=== PATIENT | male | born 1970 | race Caucasian/White ===

== ENCOUNTER 2024-03-18 16:54 | Emergency (ER) | payer OTHER, SELFPAY ==
[2024-03-18 17:09] VITALS: BP 169/104
[2024-03-18 17:25] VITALS: BP 156/95
[2024-03-18] MEDS: LOW STRENGTH ASPIRIN 324 MG PO (17:32)
[2024-03-18] MEDS: NITROSTAT (SUBLINGUAL) 0.4 MG SL (17:33)
[2024-03-18 17:56] LABS: % Basophils 0.6 % (0-2); % Eosinophils 3.3 % (0-6); % Immature Granulocytes 0.2 % (0-0.5); % Lymphocytes 13.8 % (20.5-51.1); % Monocytes 10.6 % (1.7-9.3); % Neutrophils 71.5 % (42.2-75.2); Absolute Basophils 0.1 10^3/uL (0-0.2); Absolute Eosinophils 0.3 10^3/uL (0-0.7); Absolute Lymphocytes 1.3 10^3/uL (1.2-3.4); Absolute Neutrophils 6.7 10^3/uL (1.4-6.5); Hematocrit 30.8 % (39.0-52.0); Hemoglobin 9.7 g/dL (13.0-18.0); Mean Corp Hgb Conc. 31.5 g/dL (33.0-37.0); Mean Corpuscular Volume 73.2 fL (80.0-94.0); Mean Platelet Volume 9.3 fL (7.4-10.4); Nucleated Red Blood Cells % 0 % (-); Platelet Count 323 10^3/uL (130-400); Red Blood Cell Count 4.21 10^6/uL (4.70-6.10); Red Cell Dist. Width 15.9 % (11.5-14.5); White Blood Cell Count 9.4 10^3/uL (4.8-10.8)
[2024-03-18 18:00] VITALS: BP 160/82
[2024-03-18 18:01] LABS: D-Dimer 0.38 ug/mlFEU (0.00-0.50)
[2024-03-18 18:03] LABS: ALT (SGPT) 39 U/L (0-50); AST (SGOT) 105 U/L (17-59); Albumin 4.3 g/dl (3.5-5.0); Alkaline Phosphatase 107 U/L (38-126); Blood Urea Nitrogen 21 mg/dl (9-20); Carbon Dioxide 27 mmol/L (22-30); Chloride 100 mmol/L (98-107); Glucose 103 mg/dl (70-99); Potassium 3.6 mmol/L (3.5-5.1); Sodium 139 mmol/L (135-145); Total Bilirubin 0.3 mg/dl (0.2-1.3); Total Protein 7.4 g/dl (6.3-8.2); eGFR > 60.00
[2024-03-18 18:04] LABS: Lipase 96 U/L (23-300)
[2024-03-18 18:13] LABS: Troponin I < 0.012 ng/ml
[2024-03-18 18:56] LABS: Iron 21 ug/dl (49-181)
[2024-03-18 19:00] VITALS: BP 136/91
[2024-03-18 19:09] LABS: Percent Saturation 4 % (20-50); Total Iron Binding Capacity 460 ug/dl (261-462)
--- NOTE | 2024-03-18 19:11 | ED.GENMED ---
History of Present Illness
General
Chief Complaint: Chest Pain
Source: patient
Exam Limitations: none
Time Seen by Provider: 03/18/24 17:22
Nursing documentation reviewed up to this point in time: agreed with
History of Present Illness
History of Present Illness:
The patient presents to ED secondary to chest pain while he was at work. 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 Chest pain described as tightness and pressure, nonradiating, worse with deep
inspiration, minimal at rest. Denies shortness of breath. Denies diaphoresis. Denies nausea or vomiting. Denies dizziness. Chest pain lasted approximately 30 to 40 minutes with spontaneous resolution. However, around 2:30 PM, when he went back
to work, his chest pain returned. At the time of evaluation ED, patient states that his chest pain has improved significantly, but still rates pain as 4 out of 10 on pain scale. Denies previous history of similar chest pain. Patient is ex-smoker.
There is family history of heart disease. Denies recent surgery or travel. Denies leg pain or swelling. Denies back pain. Denies recent illness.
Review of Systems
Review of Systems
Allergies reviewed?: Yes
All Other Systems: ROS reviewed and negative except as documented in HPI and ROS
Constitutional: Reports no symptoms; Denies fever
Respiratory: Reports no symptoms; Denies cough or trouble breathing
Cardiac: Reports chest pain
ABD/GI: Reports no symptoms
Musculoskeletal: Reports no symptoms
Skin: Reports no symptoms
Neurological: Reports no symptoms
Phy Exam
Physical Exam
Physical Exam:
Physical Exam
General: no apparent distress, not acutely ill. afebrile.
Head: nc/at. eomi
Neck: supple. normal range of motion.
Heart: s1/s2 regular rate and rhythm, no murmur. equal radial pulses.
Lungs: no acute respiratory distress. clear bilaterally. chest wall nontender to palpation.
Abdomen: normal bowel sounds. not tender.
Neuro: alert and oriented. no focal neurological deficits
Skin: no rash
Psychiatric: well kept. interactive and cooperative
Extremities: no edema. no calf tenderness.
Scores
Heart Score for Chest Pain Patients
STEMI patient?: No
History: Slightly or Non-Suspicious
ECG: Normal
Age: >45 - <65 years
Risk Factors: 1 or 2 Risk Factors
Troponin: </= Normal Limit
Heart Score for Chest Pain Patients: 2
Heart Score Risk: 2.5% MACE over next 6 weeks
Course
Orders/Labs/Results
Orders:
Orders
03/18/24 16:54
ECG [Electrocardiogram (*1)] Urgent
Reason for Study: Chest Pain
03/18/24 16:55
EKG- Treatment ONCE
03/18/24 17:28
Aspirin Chewable [Low Strength Aspirin] 324 mg PO NOW STA
Nitroglycerin Sublingual [Nitrostat (Sublingual)] 0.4 mg SL NOW STA
03/18/24 17:29
Electrocardiogram (*1) Urgent
Reason for Study: Chest Pain
EKG- Treatment ONCE
CR Chest Portable - 1 View Urgent
Comment:
Reason For Exam: chest pain
Reason Study Needs to be Portable: Patient Unstable
03/18/24 17:31
CMP [Comprehensive Metabolic Panel] Urgent
Complete Blood Count/With Diff Urgent
D-Dimer Urgent
Ferritin Urgent
Comment: ADD ON
Iron Urgent
Lipase Urgent
Total Iron Binding Urgent
Troponin I Urgent
03/18/24 18:19
Add On- LAB Urgent
Tests Added?: Iron, Ferritin, TIBC
03/18/24 20:15
Troponin I Urgent
Abnormal Lab Results
03/18/24
17:31
RBC 4.21 L 10^6/uL
(4.70-6.10)
Hgb 9.7 L g/dL
(13.0-18.0)
Hct 30.8 L %
(39.0-52.0)
MCV 73.2 L fL
(80.0-94.0)
MCH 23.0 L pg
(27.0-31.0)
MCHC 31.5 L g/dL
(33.0-37.0)
RDW 15.9 H %
(11.5-14.5)
Absolute Neuts (auto) 6.7 H 10^3/uL
(1.4-6.5)
Absolute Monos (auto) 1.0 H 10^3/uL
(0.1-0.6)
Lymphocytes % 13.8 L %
(20.5-51.1)
Monocytes % 10.6 H %
(1.7-9.3)
BUN 21 H mg/dl
(9-20)
Glucose 103 H mg/dl
(70-99)
Iron 21 L ug/dl
(49-181)
% Saturation 4 L %
(20-50)
Ferritin 7.4 L ng/ml
(17.9-464.0)
AST 105 H U/L
(17-59)
03/18/24 17:31
03/18/24 17:31
Vital Signs
Initial and Last Documented VS:
Initial Vital Signs
Temp Pulse Resp BP Pulse Ox
100.0 F 109 20 169/104 99
03/18/24 17:09 03/18/24 17:09 03/18/24 17:09 03/18/24 17:09 03/18/24 17:09
Last Documented Vital Signs
Temp Pulse Resp BP Pulse Ox
100.0 F 102 19 136/91 97
03/18/24 17:09 03/18/24 20:15 03/18/24 20:15 03/18/24 19:00 03/18/24 20:15
MDM/Problems Addressed
MDM/Problems Addressed:
Patient with an unremarkable workup in ED and remains hemodynamically stable. Will repeat second. If negative, patient will be referred to [place] [facility] for an outpatient consultation via chest pain hotline.
*Critical Care Note
Total Time (30-74mins, 75-104mins- exclusive of procedures): Not Applicable
ED Attending Note
-
Portions of this chart may have been created with voice recognition software.� Occasional wrong word or��sound alike� substitutions may have occurred due to the inherent limitations of voice recognition software.
Discharge Plan
Departure
Patient Disposition: Home (Routine Discharge)
Patient with high blood pressure during this ER visit?: Yes
Discharge Problem:
Chest pain, Anemia
Instructions: Anemia caused by low iron, Chest Pain [facility] Follow Up
Referrals:
Derrek Chang, DO [Family Provider] -
Everett Mcdaniel DO [Active] -
Activity Restrictions/Additional Instructions:
As discussed, please follow-up with referred drive away driver for further evaluation and treatment. You will be receiving phone call from cardiology office without appointment. In addition, blood work in ED revealed likely iron deficiency anemia.
Recommend taking iron supplements along with primary care physician follow-up, including repeat blood work as an outpatient. Please return to ED with worsening symptoms.
Interventions
Interventions:
*Risk Screen - Suicide Last Done: 03/18/24 17:27
*General Assessment Last Done: 03/18/24 17:27
*Neglect/Abuse Screening Last Done: 03/18/24 17:27
*ED COVID-19 Vaccine History Last Done: 03/18/24 17:27
*Nursing Disposition Last Done: 03/18/24 21:28
ED- Cardiac Assessment Last Done: 03/18/24 17:27
Discharge Date and Time
Discharge Date/Time: 03/18/24 21:28
Print Language: [email or web address]
[2024-03-18 20:35] LABS: Ferritin 7.4 ng/ml (17.9-464.0)
[2024-03-18 20:48] LABS: Troponin I < 0.012 ng/ml
== END 2024-03-18 21:28 | disposition home or self-care (01) ==
LOC: EMR 16:54
PROVIDERS: EMERGENCY PHYSICIAN Emergency Medicine; FAMILY PHYSICIAN Family Medicine
DX: R07.89 Other chest pain (principal); D64.9 Anemia, unspecified; I10 Essential (primary) hypertension; Z87.891 Personal history of nicotine dependence; Z91.018 Allergy to other foods; Z82.49 Family history of ischemic heart disease and other diseases of the circulatory system
CPT/HCPCS: 99284; 71045; 80053; 82728; 83540; 83550; 83690; 84484; 85025; 85379; 93005

== ENCOUNTER → 2024-04-25 09:27 | Outpatient (REF) | payer OTHER, SELFPAY | LOC: RCS 09:27 | PROVIDERS: ATTENDING PHYSICIAN Internal Medicine Cardiovascular Disease; FAMILY PHYSICIAN Family Medicine | DX: R06.02 Shortness of breath (principal) | CPT/HCPCS: 93017; 93350 ==

== ENCOUNTER → 2024-05-24 09:27 | Outpatient (REF) | payer OTHER, SELFPAY | LOC: HWRAD 09:27 | PROVIDERS: ATTENDING PHYSICIAN Otolaryngology; FAMILY PHYSICIAN Family Medicine | DX: J32.2 Chronic ethmoidal sinusitis (principal) | CPT/HCPCS: 70486 ==